=== PATIENT | male | born 1970 | race African-American/Black ===

== ENCOUNTER 2024-05-20 17:44 | Emergency (ER) | payer OTHER, SELFPAY ==
[2024-05-20 17:59] VITALS: BP 125/73; PULSE 81; RESP 18; TEMP 37.2; O2SAT 100; BMI 23.7
--- NOTE | 2024-05-20 18:22 | DI.CT.S_ITS ---
PROCEDURE: CT HEAD/BRAIN WO CON INDICATIONS: pain; heavy wooden beam fell on top of his head 3 weeks ago TECHNIQUE: Noncontrast 4.5 mm thick angled axial sections acquired from the foramen magnum to the vertex, with coronal and sagittal reformats. For radiation dose reduction, the following was used: automated exposure control, adjustment of mA and/or kV according to patient size. COMPARISON: None. FINDINGS: Image quality: Diagnostic. CSF spaces: Basal cisterns are patent. No extra-axial fluid collections. Ventricles are normal in size and shape. Brain: No midline shift. No intracranial masses or hemorrhage. Sierra-white matter interface is normal. Skull and face: Calvarium and visualized facial bones are intact, without suspicious lesions. Sinuses: Visualized sinuses and mastoids are clear. IMPRESSION: No acute intracranial pathology. Dictated by: Taiwo Vazquez M.D. on 05/20/2024 at 18:43 Approved by: Taiwo Vazquez M.D. on 05/20/2024 at 18:43
--- NOTE | 2024-05-20 18:22 | DI.CT.S_ITS ---
PROCEDURE: CT CERVICAL SPINE WO CON INDICATIONS: pain; heavy wooden beam fell on top of his head 3 weeks ago TECHNIQUE: Noncontrast 3 mm thick sections acquired from the skull base to the T4 level. Sagittal and coronal reformats were then constructed. For radiation dose reduction, the following was used: automated exposure control, adjustment of mA and/or kV according to patient size. COMPARISON: None. FINDINGS: Image quality: Excellent. Bones: No fractures or dislocations. Loss of disc height, degenerative endplate changes and bilateral uncovertebral hypertrophic changes are noted throughout cervical spine more notably at C5-6 and C6-7 levels. Visualized superior ribs are intact. Soft tissues: Prevertebral soft tissues are normal in thickness. No paravertebral hematomas. No apical pneumothoraces. IMPRESSION: 1. No displaced fracture or traumatic subluxation. 2. Multilevel spondylitic changes throughout cervical spine as above. Dictated by: Taiwo Vazquez M.D. on 05/20/2024 at 18:44 Approved by: Taiwo Vazquez M.D. on 05/20/2024 at 18:45
--- NOTE | 2024-05-20 18:32 | ED_ITS ---
<Statement entered by Beto Menezes, - 05/20/24 21:09> Dr. Menezes: I was immediately available in the department for consultation. I did not actually see the patient. HPI - Head Injury General Chief complaint: Head Injury Stated complaint: Head trauma x1 mo, NARAYAN, swelling, hearing issue Time Seen by Provider: 05/20/24 18:11 Source: patient Mode of arrival: Ambulatory History of Present Illness HPI Narrative: Mr. Franks Is a very pleasant 54-year-old male who denies any past medical history that presents to the emergency department for persistent headache, neck pain after a large heavy wooden beam fell directly on the top of his head on April 25. patient states large 4 x 8 or 4 x 10 wooden beam fell approximately 3 ft hitting him directly on the top of his head on April 25. He did not lose consciousness but felt slightly dazed immediately after the accident. He has had no nausea or vomiting since then but reports feeling slightly groggy, persistent headache/superior scalp pain, and some mild bilateral neck soreness. He also notes that when he wakes up in the morning he feels like his upper eyelids in the right side of his face is slightly swollen and it resolves as the day goes on. He continues to feel an abnormality on the right superior portion of his scalp. Also admits to sensation of fullness in his right ear. There was no bleeding or lacerations. No visual disturbance. No numbness tingling or weakness of any of the extremities. He denies a history of diabetes or high blood pressure. He is here with his son who contributes to the history. They live on [address]. Related Data Allergies Allergy/AdvReac Type Severity Reaction Status Date / Time No Known Drug Allergies Allergy Verified 05/20/24 17:59 Review of Systems Review of Systems ROS Unobtainable: All systems reviewed & are unremarkable except as noted in HPI and below Patient History Social History Smoking Status: Never smoker Smoking Status: Never smoker Exam Narrative Exam Narrative: GENERAL: 54 year old patient appears stated age. Well-developed patient, in no acute distress. HEAD: Atraumatic. Normocephalic. EYES: PERRL. BL Proptosis. Extraocular motions intact. No scleral icterus. No injection or drainage. ENT: Cerumen in right ear canal, TMs clear bilaterally with no hemotympanum. Nose without bleeding, purulent drainage. Throat without erythema, tonsillar hypertrophy or exudate. Airway patent. NECK: Trachea midline. Cervical ROM intact. No midline spinal tenderness. Subjective pain in bilateral cervical region with range of motion. CARDIOVASCULAR: Regular rate and rhythm. RESPIRATORY: Nonlabored respirations. Speaking in clear, full sentences. Clear to auscultation. Breath sounds equal bilaterally. No wheezes, rales, or rhonchi. EXTREMITIES: No edema or joint tenderness. BACK: No midline spinal tenderness. NEURO: AOx3. Clear speech. Moves all 4 extremities appropriately. No facial asymmetry. Bilateral upper and lower extremity strength intact. Ambulatory. SKIN: No rash or erythema of visible areas Initial Vital Signs Initial Vital Signs: Vital Signs Temperature 98.9 F 05/20/24 17:59 Pulse Rate 81 05/20/24 17:59 Respiratory Rate 18 05/20/24 17:59 Blood Pressure 125/73 05/20/24 17:59 Pulse Oximetry 100 05/20/24 17:59 Oxygen Delivery Method Room Air 05/20/24 17:59 Procedures Ear Wax Removal Right Ear: Results: Re-examined: cerumen removed completely TM Examination: TM(s) intact, normal appearance Ear Canal Exam: atraumatic Patient Tolerated Procedure: Well Complications: no problems Technique: ear canal curetted Course Orders Ordered: ED Orders 05/20/24 18:22 CT cervical spine wo con Stat CT head/brain wo con Stat Vital Signs Vital signs: Vital Signs - 8 hr 05/20/24 17:59 Temperature 98.9 F Pulse Rate 81 Respiratory Rate 18 Blood Pressure 125/73 Pulse Oximetry 100 Oxygen Delivery Method Room Air MDM - Head Injury MDM Narrative Medical decision making narrative: 54-year-old male who denies any past medical history that presents to the emergency department for persistent headache, neck pain after a large heavy wooden beam fell directly on the top of his head on April 25. Differential diagnosis includes but is not limited to concussion, closed head injury, skull fracture, intracranial hemorrhage, cerumen impaction, hyperglycemia, hypoglycemia, hyperthyroidism, etc. On exam patient is in no acute distress, nontoxic appearing, vital signs within normal limits. He has no focal neurologic deficits, pupils are equal round reactive to light, he does have tenderness to palpation of the right superior scalp. He is ambulatory without difficulty. No midline cervical tenderness. We will proceed with head and neck CT. He declines pain medication. Point of care glucose 98. CT cervical spine reveals no displaced fracture or traumatic subluxation. Multilevel spondylitic changes throughout cervical spine. head CT reveals no acute intracranial pathology. Suspect patient's symptoms are due to persistent concussion, he has not interested in any medications but we did discuss the importance of decreased mental stimulation, follow up with PCP, neurology for persistent symptoms. Also recommended patient follow up with his PCP regarding potential Graves disease given his proptosis on exam. Patient his son verbalized understanding of all information and are happy with this plan. He is stable for discharge home. Discharge Plan Departure Patient Disposition: Home Clinical Impression: Cervical spondylitis Concussion without loss of consciousness Qualifiers: Encounter type: initial encounter Qualified Code(s): S06.0X0A - Concussion without loss of consciousness, initial encounter Closed head injury Qualifiers: Encounter type: initial encounter Qualified Code(s): S09.90XA - Unspecified injury of head, initial encounter Instructions: DI for Concussion Activity Restrictions/Additional Instructions: Dear Mr. Mirzalean, Thank you for coming to the emergency department. Today you were evaluated for symptoms after head trauma. The CT scan of your head and neck revealed no bleeds or fractures. Today you were evaluated and diagnosed with a concussion which is type of closed head injury.Avoiding highly stimulating activities and even TV or computers may be helpful in minimizing your symptoms. Avoid activities that will put you at risk for another head injury for at least a week. You can take tylenol or motrin for headache. Return for worsening or persistent symptoms Please follow up with your primary care doctor within the next 2-3 days for ER follow-up. (If you do not have a PCP you can call [phone]. to schedule an appointment with an [facility] Primary Care Provider) IF YOU DEVELOP ANY NEW OR WORSENING SYMPTOMS, RETURN TO THE ER! Please read the attached instructions, they highlight more specific treatments and interventions for you at home. Thank you for letting me participate in your care, Missy Chang PA-C Referrals: Maximino Lopez PA-C [Primary Care Provider] - Stand Alone Forms: Patient Portal/API/Survey
[2024-05-20 19:30] VITALS: BP 133/81; PULSE 73; RESP 16; O2SAT 98
== END 2024-05-20 19:32 | disposition home or self-care (01) ==
PROVIDERS: Emergency Provider Physician Assistant; PCP Physician Assistant
DX: S06.0X0A Concussion without loss of consciousness, initial encounter (principal); M54.2 Cervicalgia; W22.8XXA Striking against or struck by other objects, initial encounter; M46.82 Other specified inflammatory spondylopathies, cervical region
CPT/HCPCS: 69209; 70450; 72125; 82962; 99282; 99284

== ENCOUNTER 2024-07-03 15:05 | Emergency (ER) | payer OTHER, SELFPAY ==
[2024-07-03 15:08] VITALS: BP 139/78; PULSE 89; RESP 18; TEMP 36.8; O2SAT 99; BMI 23.6
--- NOTE | 2024-07-03 15:33 | ED_ITS ---
HPI - Abdominal Pain <Missy Chang PA-C - Last Filed: 07/03/24 18:45> General Chief Complaint: Abdominal Pain Stated Complaint: kidney px, blood in urine Time Seen by Provider: 07/03/24 15:25 Source: patient Mode of arrival: Ambulatory History of Present Illness HPI narrative: Mr. Franks is a very pleasant 54-year-old male with a past medical history of cervical spondylitis, concussion who presents to the emergency department for ?kidney pain, blood in urine? x1 week. Patient states over the last week he has been having abdominal pain and spasms off and on, on Monday he went to a clinic on [address] and was told that he had blood in his urine. His pain started to focus in the right back/flank reason but is also now in the periumbilical region and he feels as though he has been more constipated than usual. He denies gross hematuria but does report his urine has been more yellow than usual. Today he started to feel somewhat feverish. Denies chest pain, shortness of breath, nausea, vomiting, cough, fevers, dysuria. Denies history of abdominal surgeries, he does not take any prescription medications but does take ashwaganda. He does not smoke. Related Data Previous Rx's Medication Instructions Recorded dicyclomine 10 mg capsule 10 mg PO TID 1 week #21 caps 07/05/24 Allergies Allergy/AdvReac Type Severity Reaction Status Date / Time No Known Drug Allergies Allergy Verified 05/20/24 17:59 Review of Systems <Missy Chang PA-C - Last Filed: 07/03/24 18:45> Review of Systems ROS Unobtainable: All systems reviewed & are unremarkable except as noted in HPI and below Patient History <Missy Chang PA-C - Last Filed: 07/03/24 18:45> Smoking Status: Never smoker Exam <Missy Chang PA-C - Last Filed: 07/03/24 18:45> Narrative Exam Narrative: GENERAL: 54 year old patient appears stated age. Well-developed patient, in no acute distress. HEAD: Atraumatic. Normocephalic. NECK: Trachea midline. Cervical ROM intact. CARDIOVASCULAR: Regular rate and rhythm. RESPIRATORY: ?Nonlabored respirations. ?Speaking in clear, full sentences. ?Clear to auscultation. Breath sounds equal bilaterally. No wheezes, rales, or rhonchi. ? GASTROINTESTINAL: Patient has periumbilical abdominal tenderness, nonfocal, nonspecific, there is active guarding which patient is able to relax no rebound or peritoneal signs. Bowel sounds present. EXTREMITIES: No edema or joint tenderness. Strong DP pulses BL. BACK: Right-sided subjective CVA tenderness. NEURO: AOx3. ?Clear speech. ?Moves all 4 extremities appropriately. SKIN: No rash or erythema of visible areas Initial Vital Signs Initial Vital Signs: Vital Signs Temperature 98.2 F 07/03/24 15:08 Pulse Rate 89 07/03/24 15:08 Respiratory Rate 18 07/03/24 15:08 Blood Pressure 139/78 07/03/24 15:08 Pulse Oximetry 99 07/03/24 15:08 Oxygen Delivery Method Room Air 07/03/24 15:08 <Alicia Stephens DO - Last Filed: 07/05/24 10:28> Initial Vital Signs Initial Vital Signs: Vital Signs Temperature 98.2 F 07/03/24 15:08 Pulse Rate 89 07/03/24 15:08 Respiratory Rate 18 07/03/24 15:08 Blood Pressure 139/78 07/03/24 15:08 Pulse Oximetry 99 07/03/24 15:08 Oxygen Delivery Method Room Air 07/03/24 15:08 Course <Missy Chang PA-C - Last Filed: 07/03/24 18:45> Orders Ordered: Discontinued Medications Ketorolac Tromethamine (Ketorolac 30 Mg/Ml Vial) 15 mg IV NOW ONE Stop: 07/03/24 15:49 Vital Signs Vital signs: Vital Signs - 8 hr 07/03/24 15:08 07/03/24 18:05 Temperature 98.2 F Pulse Rate 89 74 Respiratory Rate 18 20 Blood Pressure 139/78 124/80 Pulse Oximetry 99 99 Oxygen Delivery Method Room Air Room Air <DO Yanelis Aguilar Last Filed: 07/05/24 10:28> Orders Ordered: Discontinued Medications Ketorolac Tromethamine (Ketorolac 30 Mg/Ml Vial) 15 mg IV NOW ONE Stop: 07/03/24 15:49 Vital Signs Vital signs: Vital Signs - 8 hr 07/03/24 15:08 07/03/24 18:05 Temperature 98.2 F Pulse Rate 89 74 Respiratory Rate 18 20 Blood Pressure 139/78 124/80 Pulse Oximetry 99 99 Oxygen Delivery Method Room Air Room Air MDM - Abdominal Pain <Missy Chang PA-C - Last Filed: 07/03/24 18:45> Medical Records Attestation: I reviewed the patient's medical records. Medical records narrative: ED visit 05/20/2024 Lab Data 07/03/24 15:50 07/03/24 15:50 Labs: Lab Results 07/03/24 07/03/24 Range/Units 15:15 15:50 WBC 4.8 (4.5-11.0) X10^3/uL RBC 5.29 (4.5-5.9) X10^6/uL Hgb 15.8 (13.5-17.5) g/dL Hct 46.5 (41-53) % MCV 87.9 (80-100) fL MCH 29.9 (26-34) PG MCHC 34.0 (30-36) % RDW 13.7 (11.6-14.8) % Plt Count 228 (150-400) X10^3/uL Neut % (Auto) 56.9 (50-75) % Lymph % (Auto) 34.3 (25-40) % [place] % (Auto) 7.6 (3-14) % Eos % (Auto) 0.8 L (2-4) % Baso % (Auto) 0.4 (0-2) % Neut # (Auto) 2700 (6240-4711) /uL Lymph # (Auto) 1600 (7160-9326) /uL [place] # (Auto) 400 (0-900) /uL Eos # (Auto) 0 (0-450) /uL Baso # (Auto) 0 (0-100) /uL Sodium 139 (137-145) mmol/L Potassium 4.7 (3.4-5.1) mmol/L Chloride 99 (98-107) mmol/L Carbon Dioxide 33 H (22-32) mmol/L BUN 17 (9-20) mg/dL Creatinine 1.01 (0.66-1.25) mg/dL Estimated GFR > 60 (>60) mL/min BUN/Creatinine Ratio 16.8 (6-22) Glucose 103 H (70-99) mg/dL Lactate 1.6 (0.7-2.1) mmol/L Calcium 10.3 H (8.4-10.2) mg/dL Total Bilirubin 0.6 (0.2-1.3) mg/dL AST 36 (17-59) IU/L ALT 37 (<50) IU/L Alkaline Phosphatase 93 (38-126) U/L Total Protein 8.0 (6.3-8.2) g/dL Albumin 4.8 (3.5-5.0) g/dL Globulin 3.2 (1.7-4.1) g/dL Albumin/Globulin Ratio 1.5 (1.0-2.8) Lipase 307 H (23-300) U/L Urine RBC 0-1/hpf (0-5/HPF) Urine WBC None seen (0-5/HPF) Ur Squamous Epith Cells 0-1 /hpf (0-5/HPF) Urine Bacteria None seen (None) Ur Culture Indicated? Cult not indicated Vol Urine Centrifuged 10ml (spun) Point of care testing: Urine Dip Bedside Urine Glucose Negative Bedside Urine Bilirubin - Negative Bedside Urine Ketone - Negative Urine Specific [place] 1.015 Bedside Urine Occult Blood + Bedside Urine pH 6.0 Bedside Urine Protein - Negative Bedside Urine Urobilinogen - Negative Bedside Urine Nitrite - Negative Bedside Urine Leukocytes - Negative Esterase Imaging Data CT scan - abdomen/pelvis: Radiologist's Impression: PROCEDURE: CT ABDOMEN PELVIS W CON INDICATIONS: R flank pain; periumbilical pain; constipation; hematuria TECHNIQUE: After the administration of intravenous contrast, axial sections acquired from the lung bases to the pubic symphysis. Coronal and sagittal reformats were performed. For radiation dose reduction, the following was used: automated exposure control, adjustment of mA and/or kV according to patient size. COMPARISON: None. FINDINGS: Image quality: Diagnostic. Lower Chest: No significant findings. ABDOMEN: Liver: There is a 1 cm indeterminate hypoenhancing area in the right hepatic lobe posteriorly. Gallbladder: No radiopaque gallstones or wall thickening. Biliary ducts: No biliary dilation. Pancreas: No ductal dilation. Spleen: Size is within normal limits. Adrenal Glands: No adrenal nodules. Kidneys and Ureters: No hydronephrosis. No solid mass. No complex renal cystic lesion which requires follow up. Stomach and Bowel: Normal colonic caliber, without significant wall thickening. The appendix is normal. Peritoneum: No abnormal intraperitoneal fluid. No free air. Ventral Wall: No significant ventral hernia. Abdominal Nodes: No retroperitoneal or mesenteric adenopathy by size criteria. Vessels: Aorta and inferior vena cava are normal in size. PELVIS: Pelvic Organs: Unremarkable. Bladder: No bladder wall thickening, accounting for underdistention. Pelvic Nodes: No enlarged lymph nodes. Miscellaneous: No inguinal hernias are seen. Bones: No aggressive osseous abnormality. IMPRESSION: 1. No acute intra-abdominal abnormality seen. 2. Subcentimeter hypodense lesion in the right hepatic lobe, statistically likely benign. If there is a clinical possibility of malignancy, this could be further assessed with follow-up MRI in 3 months. Dictated by: Cody Dunham M.D. on 07/03/2024 at 16:52 Approved by: Cody Dunham M.D. on 07/03/2024 at 16:57 [facility] Narrative Medical decision making narrative: 54-year-old male with a past medical history of cervical spondylitis, concussion who presents to the emergency department for ?kidney pain, blood in urine? x1 week. Differential diagnosis includes but is not limited to right nephrolithiasis, pyelonephritis, hydronephrosis, UTI, muscle strain, diverticulitis, cholecystitis, appendicitis, electrolyte abnormality, etc. On exam patient is in no acute distress, nontoxic-appearing, all vital signs within normal limits. Does have some nonfocal periumbilical abdominal tenderness, right flank tenderness. Point of care UA reveals no ketones, no signs of infection, there is occult blood. We will obtain CBC, CMP, lipase, CT abdomen pelvis with IV contrast given patient's tenderness, reported fevers. Toradol ordered however patient is very reluctant to use any medication for his pain. Labs revealed WBC count 4.8, hemoglobin 15.8, hematocrit 46.5. Normal sodium 139, potassium 4.7, carbon dioxide mild elevation 33. Glucose 103, normal renal function, calcium 10.3. Normal LFTs. Lipase slightly elevated 307, not consistent with pancreatitis. Urine reveals 0-1 RBC, 0-1 squamous epithelial cells. No signs of infection. Imaging reveals no acute intra-abdominal abnormality, subcentimeter hyperdense lesion in the right hepatic lobe. All lab work and imaging results were printed with the patient, recommended further follow up with his PCP for liver lesion. At this time we discussed that right flank pain could have been because a passed kidney stone however more likely musculoskeletal, recommended Toradol, Tylenol, Lidoderm, patient declines any and all pain medications at this time. He is agreeable to follow up with his PCP, we discussed some supportive care measures he could use for home and most importantly we discussed strict ED return precautions as we do not have a definitive diagnosis for his symptoms today. His abdominal exam is benign at this time. He verbalized understanding of all information is agreeable with the plan. He is stable for discharge home. <Alicia Stephens, - Last Filed: 07/05/24 10:28> Lab Data Labs: Lab Results 07/03/24 07/03/24 Range/Units 15:15 15:50 WBC 4.8 (4.5-11.0) X10^3/uL RBC 5.29 (4.5-5.9) X10^6/uL Hgb 15.8 (13.5-17.5) g/dL Hct 46.5 (41-53) % MCV 87.9 (80-100) fL MCH 29.9 (26-34) PG MCHC 34.0 (30-36) % RDW 13.7 (11.6-14.8) % Plt Count 228 (150-400) X10^3/uL Neut % (Auto) 56.9 (50-75) % Lymph % (Auto) 34.3 (25-40) % [place] % (Auto) 7.6 (3-14) % Eos % (Auto) 0.8 L (2-4) % Baso % (Auto) 0.4 (0-2) % Neut # (Auto) 2700 (0977-3635) /uL Lymph # (Auto) 1600 (5853-8077) /uL [place] # (Auto) 400 (0-900) /uL Eos # (Auto) 0 (0-450) /uL Baso # (Auto) 0 (0-100) /uL Sodium 139 (137-145) mmol/L Potassium 4.7 (3.4-5.1) mmol/L Chloride 99 (98-107) mmol/L Carbon Dioxide 33 H (22-32) mmol/L BUN 17 (9-20) mg/dL Creatinine 1.01 (0.66-1.25) mg/dL Estimated GFR > 60 (>60) mL/min BUN/Creatinine Ratio 16.8 (6-22) Glucose 103 H (70-99) mg/dL Lactate 1.6 (0.7-2.1) mmol/L Calcium 10.3 H (8.4-10.2) mg/dL Total Bilirubin 0.6 (0.2-1.3) mg/dL AST 36 (17-59) IU/L ALT 37 (<50) IU/L Alkaline Phosphatase 93 (38-126) U/L Total Protein 8.0 (6.3-8.2) g/dL Albumin 4.8 (3.5-5.0) g/dL Globulin 3.2 (1.7-4.1) g/dL Albumin/Globulin Ratio 1.5 (1.0-2.8) Lipase 307 H (23-300) U/L Urine RBC 0-1/hpf (0-5/HPF) Urine WBC None seen (0-5/HPF) Ur Squamous Epith Cells 0-1 /hpf (0-5/HPF) Urine Bacteria None seen (None) Ur Culture Indicated? Cult not indicated Vol Urine Centrifuged 10ml (spun) Point of care testing: Urine Dip Bedside Urine Glucose Negative Bedside Urine Bilirubin - Negative Bedside Urine Ketone - Negative Urine Specific [place] 1.015 Bedside Urine Occult Blood + Bedside Urine pH 6.0 Bedside Urine Protein - Negative Bedside Urine Urobilinogen - Negative Bedside Urine Nitrite - Negative Bedside Urine Leukocytes - Negative Esterase Discharge Plan Departure Patient Disposition: Home Clinical Impression: Acute right flank pain, Abdominal pain, acute, periumbilical, Liver lesion, right lobe Instructions: DI for Abdominal Pain-Adult Activity Restrictions/Additional Instructions: Dear Mr. Mirzalean, Thank you for coming to the emergency department.Today, we completed a work up for right flank pain and abdominal pain. Sometimes, we do not always find the cause for your symptoms in one ER visit. The findings on your exam today and on your blood work and/or imaging is reassuring. At this time, it is not 100% certain what is causing your symptoms, but we feel you can be discharged from the emergency department. It is possible this may worsen or you may get better. Please, if you get worse or your symptoms change, return to the emergency department. Otherwise, please follow up with your primary care doctor in 1-2 days or any of the specialists we have provided or recommended. I do recommend ibuprofen and acetaminophen however if you do not want to take these medications, please rest, hydrate, do gentle stretching, and use heat therapy on your back to help with pain. Please follow up with your primary care doctor within the next 2-3 days for ER follow-up. (If you do not have a PCP you can call [phone]. ?to schedule an appointment with an [facility] Primary Care Provider) IF YOU DEVELOP ANY NEW OR WORSENING SYMPTOMS, RETURN TO THE ER! Please read the attached instructions, they highlight more specific treatments and interventions for you at home. Thank you for letting me participate in your care, Missy Chang PA-C Prescriptions: No Action dicyclomine 10 mg capsule 10 mg PO TID 7 Days Qty: 21 0RF Referrals: Maximino Lopez PA-C [Primary Care Provider] - Stand Alone Forms: Patient Portal/API/Survey ED Sign-out <Alicia Stephens DO - Last Filed: 07/05/24 10:28> Cosign ED Attending Agustinaature Attestation: I was immediately available in the department for consultation.
[2024-07-03 15:49] LABS: Bacteria Urine None Seen; Culture Indicated Urine Cult Not Indicated; RBC Urine 0-1/HPF (0-5/HPF); Squamous Epithelial Cell Urine 0-1 /HPF (0-5/HPF); Urine Volume 10mL (spun); WBC Urine None Seen (0-5/HPF)
--- NOTE | 2024-07-03 15:49 | DI.CT.S_ITS ---
PROCEDURE: CT ABDOMEN PELVIS W CON INDICATIONS: R flank pain; periumbilical pain; constipation; hematuria TECHNIQUE: After the administration of intravenous contrast, axial sections acquired from the lung bases to the pubic symphysis. Coronal and sagittal reformats were performed. For radiation dose reduction, the following was used: automated exposure control, adjustment of mA and/or kV according to patient size. COMPARISON: None. FINDINGS: Image quality: Diagnostic. Lower Chest: No significant findings. ABDOMEN: Liver: There is a 1 cm indeterminate hypoenhancing area in the right hepatic lobe posteriorly. Gallbladder: No radiopaque gallstones or wall thickening. Biliary ducts: No biliary dilation. Pancreas: No ductal dilation. Spleen: Size is within normal limits. Adrenal Glands: No adrenal nodules. Kidneys and Ureters: No hydronephrosis. No solid mass. No complex renal cystic lesion which requires follow up. Stomach and Bowel: Normal colonic caliber, without significant wall thickening. The appendix is normal. Peritoneum: No abnormal intraperitoneal fluid. No free air. Ventral Wall: No significant ventral hernia. Abdominal Nodes: No retroperitoneal or mesenteric adenopathy by size criteria. Vessels: Aorta and inferior vena cava are normal in size. PELVIS: Pelvic Organs: Unremarkable. Bladder: No bladder wall thickening, accounting for underdistention. Pelvic Nodes: No enlarged lymph nodes. Miscellaneous: No inguinal hernias are seen. Bones: No aggressive osseous abnormality. IMPRESSION: 1. No acute intra-abdominal abnormality seen. 2. Subcentimeter hypodense lesion in the right hepatic lobe, statistically likely benign. If there is a clinical possibility of malignancy, this could be further assessed with follow-up MRI in 3 months. Dictated by: Cody Dunham M.D. on 07/03/2024 at 16:52 Approved by: Cody Dunham M.D. on 07/03/2024 at 16:57
[2024-07-03 16:19] LABS: Add Manual Diff / Slide Review NO; Basophils Absolute Auto 0 /uL (0-100); Basophils Percent Auto 0.4 % (0-2); Eosinophils Absolute Auto 0 /uL (0-450); Eosinophils Percent Auto 0.8 % (2-4); Hematocrit 46.5 % (41-53); Hemoglobin 15.8 g/dL (13.5-17.5); Lymphocytes Absolute Auto 1600 /uL (1100-4500); Lymphocytes Percent Auto 34.3 % (25-40); Mean Corpuscular Hemoglobin 29.9 PG (26-34); Mean Corpuscular Volume 87.9 fL (80-100); Monocytes Absolute Auto 400 /uL (0-900); Monocytes Percent Auto 7.6 % (3-14); Neutrophils Absolute Auto 2700 /uL (1500-7000); Neutrophils Percent Auto 56.9 % (50-75); Platelet Count 228 X10^3/uL (150-400); Red Blood Cell Count 5.29 X10^6/uL (4.5-5.9); Red Cell Distribution Width 13.7 % (11.6-14.8); White Blood Cell Count 4.8 X10^3/uL (4.5-11.0)
[2024-07-03 16:25] LABS: Alanine Aminotransferase 37 IU/L (<50); Albumin 4.8 g/dL (3.5-5.0); Albumin Globulin Ratio 1.5 (1.0-2.8); Alkaline Phosphatase 93 U/L (38-126); Aspartate Aminotransferase 36 IU/L (17-59); BUN Creatinine Ratio 16.8 (6-22); Bilirubin Total 0.6 mg/dL (0.2-1.3); Blood Urea Nitrogen 17 mg/dL (9-20); Calcium 10.3 mg/dL (8.4-10.2); Carbon Dioxide 33 mmol/L (22-32); Chloride 99 mmol/L (98-107); Estimated Glomerular Filt Rate > 60 mL/min (>60); Globulin 3.2 g/dL (1.7-4.1); Glucose 103 mg/dL (70-99); HEMOLYSIS 24 (0-50); Lipase 307 U/L (23-300); Potassium 4.7 mmol/L (3.4-5.1); Sodium 139 mmol/L (137-145)
[2024-07-03 16:33] LABS: Lactate (Lactic Acid) 1.6 mmol/L (0.7-2.1)
[2024-07-03 18:05] VITALS: BP 124/80; PULSE 74; RESP 20; O2SAT 99
== END 2024-07-03 19:04 | disposition home or self-care (01) ==
PROVIDERS: Emergency Provider Physician Assistant; PCP Physician Assistant
DX: R10.33 Periumbilical pain (principal); R10.9 Unspecified abdominal pain; K76.9 Liver disease, unspecified
CPT/HCPCS: 74177; 80053; 81003; 81015; 83605; 83690; 85025; 99282; 99284; Q9967

== ENCOUNTER 2024-07-04 20:45 | Emergency (ER) | payer OTHER, SELFPAY ==
[2024-07-04 20:51] VITALS: BP 152/81; PULSE 84; RESP 18; TEMP 37.1; O2SAT 99; BMI 24.3
[2024-07-04 23:14] LABS: Add Manual Diff / Slide Review NO; Basophils Absolute Auto 0 /uL (0-100); Basophils Percent Auto 0.5 % (0-2); Eosinophils Absolute Auto 0 /uL (0-450); Eosinophils Percent Auto 0.6 % (2-4); Hematocrit 46.5 % (41-53); Hemoglobin 15.9 g/dL (13.5-17.5); Lymphocytes Absolute Auto 2300 /uL (1100-4500); Lymphocytes Percent Auto 36.7 % (25-40); Mean Corpuscular HGB Conc 34.2 % (30-36); Mean Corpuscular Hemoglobin 30.1 PG (26-34); Monocytes Absolute Auto 400 /uL (0-900); Monocytes Percent Auto 6.9 % (3-14); Neutrophils Absolute Auto 3500 /uL (1500-7000); Neutrophils Percent Auto 55.3 % (50-75); Platelet Count 228 X10^3/uL (150-400); Red Blood Cell Count 5.29 X10^6/uL (4.5-5.9); Red Cell Distribution Width 13.9 % (11.6-14.8); White Blood Cell Count 6.2 X10^3/uL (4.5-11.0)
[2024-07-04 23:55] LABS: Alanine Aminotransferase 34 IU/L (<50); Albumin 4.9 g/dL (3.5-5.0); Albumin Globulin Ratio 1.4 (1.0-2.8); Alkaline Phosphatase 116 U/L (38-126); Aspartate Aminotransferase 37 IU/L (17-59); BUN Creatinine Ratio 18.2 (6-22); Bilirubin Total 0.5 mg/dL (0.2-1.3); Blood Urea Nitrogen 18 mg/dL (9-20); Calcium 10.1 mg/dL (8.4-10.2); Carbon Dioxide 30 mmol/L (22-32); Chloride 101 mmol/L (98-107); Estimated Glomerular Filt Rate > 60 mL/min (>60); Globulin 3.4 g/dL (1.7-4.1); Glucose 94 mg/dL (70-99); HEMOLYSIS < 15 (0-50); Lipase 330 U/L (23-300); Magnesium 1.9 mg/dL (1.6-2.3); Potassium 4.3 mmol/L (3.4-5.1); Sodium 138 mmol/L (137-145); Total Protein 8.3 g/dL (6.3-8.2)
[2024-07-05 01:13] VITALS: O2SAT 100
--- NOTE | 2024-07-05 01:13 | ED_ITS ---
HPI - Abdominal Pain General Chief Complaint: Abdominal Pain Stated Complaint: Abdominal Pain, Nausea Time Seen by Provider: 07/05/24 01:12 Source: patient Mode of arrival: Ambulatory History of Present Illness HPI narrative: 54-year-old male without any significant past medical history presenting from home for evaluation of persistent abdominal pain, he was seen here yesterday for the same, he states that the pain is not any better or worse, patient states that he presents because symptoms persist, he denies any other symptoms such as headache visual disturbances chest pain shortness of breath nausea vomiting or any other GI/ symptoms. He states that he feels like he needs to use the restroom but only passes gas. Related Data Previous Rx's Medication Instructions Recorded dicyclomine 10 mg capsule 10 mg PO TID 1 week #21 caps 07/05/24 Allergies Allergy/AdvReac Type Severity Reaction Status Date / Time No Known Drug Allergies Allergy Verified 05/20/24 17:59 Review of Systems Review of Systems Narrative: General: Denies fever, chills, weight loss HEENT: Denies headache, eye drainage, eye irritation, head trauma, sore throat, voice change Cardiovascular: Denies any chest pain, palpitations, tachycardia Respiratory: Denies any shortness of breath, cough, wheeze, stridor GI/: Positive abdominal pain, denies nausea, vomiting, diarrhea, bright red blood per rectum, melanotic stools, urinary frequency, urinary retention, dysuria, hematuria MSK: Denies any joint pain, muscle pains, swelling Skin: Denies any rashes, lesions, discoloration Neuro: Denies any headache, lightheadedness, dizziness, fainting, weakness Psych: Denies SI/HI Exam Narrative Exam Narrative: General: Cooperative, well-developed, not in acute distress HEENT: Normocephalic, atraumatic, PERRLA, normal sclera, eyelids normal Neck: Active full range of motion, atraumatic Chest: Normal to inspection, negative crepitus, no overlying erythema ecchymosis Respiratory: Normal respiratory effort, not in acute respiratory distress, clear to auscultation bilaterally negative cough, wheeze, tachypnea, rhonchi, rales Cardiology: Regular rate rhythm negative gallop, murmur, rubs GI/: No tenderness to palpation, soft, non rigid, normal to inspection, exam deferred MSK: Full active range of motion in all 4 extremities, atraumatic, no tenderness to palpation of any bony prominences Skin: No rashes or lesions noted Neuro: Alert awake oriented x3, moves all 4 extremities spontaneously, cranial nerves intact, able to answer all questions appropriately follows commands appropriately Psych: Cooperative, negative suicidal or homicidal ideations Initial Vital Signs Initial Vital Signs: Vital Signs Temperature 98.7 F 07/04/24 20:51 Pulse Rate 84 07/04/24 20:51 Respiratory Rate 18 07/04/24 20:51 Blood Pressure 152/81 H 07/04/24 20:51 Pulse Oximetry 99 07/04/24 20:51 Oxygen Delivery Method Room Air 07/04/24 20:51 Course Orders Ordered: ED Orders 07/04/24 22:59 Complete Blood Count AUTO DIFF Stat Comprehensive Metabolic Panel Stat Lipase Stat MAG [Magnesium] Stat Discontinued Medications Sodium Chloride (Normal Saline 0.9%) 1,000 mls @ 1,000 mls/hr IV BOLUS ONE Stop: 07/04/24 23:42 Morphine Sulfate (Morphine 4 Mg/Ml Inj) 4 mg IV NOW ONE Stop: 07/04/24 22:44 Ondansetron HCl (Ondansetron 4 Mg/2 Ml Inj) 4 mg IV NOW ONE Stop: 07/04/24 22:44 Vital Signs Vital signs: Vital Signs - 8 hr 07/04/24 20:51 07/05/24 01:13 07/05/24 01:14 Temperature 98.7 F Pulse Rate 84 78 Respiratory Rate 18 Blood Pressure 152/81 H Pulse Oximetry 99 100 100 Oxygen Delivery Method Room Air 07/05/24 01:14 Temperature Pulse Rate Respiratory Rate Blood Pressure 137/73 Pulse Oximetry Oxygen Delivery Method MDM - Abdominal Pain Differential Diagnosis Differential diagnosis: Likely abdominal pain, constipation and other (Pancreatitis, electrolyte abnormality) Lab Data 07/04/24 22:59 07/04/24 22:59 Labs: Lab Results 07/04/24 Range/Units 22:59 WBC 6.2 (4.5-11.0) X10^3/uL RBC 5.29 (4.5-5.9) X10^6/uL Hgb 15.9 (13.5-17.5) g/dL Hct 46.5 (41-53) % MCV 88.0 (80-100) fL MCH 30.1 (26-34) PG MCHC 34.2 (30-36) % RDW 13.9 (11.6-14.8) % Plt Count 228 (150-400) X10^3/uL Neut % (Auto) 55.3 (50-75) % Lymph % (Auto) 36.7 (25-40) % [place] % (Auto) 6.9 (3-14) % Eos % (Auto) 0.6 L (2-4) % Baso % (Auto) 0.5 (0-2) % Neut # (Auto) 3500 (1614-6994) /uL Lymph # (Auto) 2300 (3359-6234) /uL [place] # (Auto) 400 (0-900) /uL Eos # (Auto) 0 (0-450) /uL Baso # (Auto) 0 (0-100) /uL Sodium 138 (137-145) mmol/L Potassium 4.3 (3.4-5.1) mmol/L Chloride 101 (98-107) mmol/L Carbon Dioxide 30 (22-32) mmol/L BUN 18 (9-20) mg/dL Creatinine 0.99 (0.66-1.25) mg/dL Estimated GFR > 60 (>60) mL/min BUN/Creatinine Ratio 18.2 (6-22) Glucose 94 (70-99) mg/dL Calcium 10.1 (8.4-10.2) mg/dL Magnesium 1.9 (1.6-2.3) mg/dL Total Bilirubin 0.5 (0.2-1.3) mg/dL AST 37 (17-59) IU/L ALT 34 (<50) IU/L Alkaline Phosphatase 116 (38-126) U/L Total Protein 8.3 H (6.3-8.2) g/dL Albumin 4.9 (3.5-5.0) g/dL Globulin 3.4 (1.7-4.1) g/dL Albumin/Globulin Ratio 1.4 (1.0-2.8) Lipase 330 H (23-300) U/L MDM Narrative Medical decision making narrative: 54-year-old male without any significant past medical history presenting for persistent abdominal pain, as well as tenesmus, states that he was seen here yesterday for the same, no new symptoms, describes it as cramping, denies any other symptoms, patient had repeat lab work here no leukocytosis Chem panel unremarkable slight increase in his lipase at 330 but on palpation no pain, CT scan that was performed yesterday 07/04/2024 without any signs of pancreatitis, patient is able tolerate p.o. liquids and solids, therefore no additional imaging required, I had a lengthy conversation with the patient regards to administration of medication, he states that he does not like taking a lot of medication, I informed him that we can trial a medication called James to help with his symptoms, he states that he is willing to try this but wants to do research at home, he was given strict return precautions he verbalized understanding of this and agrees to being discharged home with outpatient follow up, informed him to follow up with the primary care and GI in outpatient setting Discharge Plan Departure Patient Disposition: Home Clinical Impression: Abdominal pain Instructions: DI for Abdominal Pain-Adult Activity Restrictions/Additional Instructions: Please follow up with your primary care doctor and GI in outpatient setting Please read the discharge instructions sheet carefully and bring all papers to all doctor follow-up visits, as it may contain information that your doctor may want to see. Disease processes change and evolve, if your symptoms worsen or if you develop any new symptoms that are concerning to you please return for evaluation. Your evaluation today does not show any evidence of any life- threatening/serious illnesses requiring admission to the hospital or surgery. Please follow-up with your doctor for re-evaluation in approximately 1 day. Seek immediate medical attention for any worrisome symptoms. *If you do not have a primary care provider please contact the [facility] Resource line at [phone]. They will ask some questions about your medical history and help get you set up with a doctor in the community. Prescriptions: New dicyclomine 10 mg capsule 10 mg PO TID 7 Days Qty: 21 0RF Referrals: Maximino Lopez PA-C [Primary Care Provider] - Michele Dorman MD [Non-Staff] - Stand Alone Forms: Patient Portal/API/Survey
[2024-07-05 01:14] VITALS: BP 137/73; PULSE 78; O2SAT 100
== END 2024-07-05 02:10 | disposition home or self-care (01) ==
PROVIDERS: Emergency Provider Student in an Organized Health Care Education/Training Program; PCP Physician Assistant
DX: R10.9 Unspecified abdominal pain (principal)
CPT/HCPCS: 36415; 80053; 83690; 83735; 85025; 99283

== ENCOUNTER → 2024-08-11 12:37 | Outpatient (CLI) | payer OTHER, SELFPAY ==
--- NOTE | 2024-08-11 12:40 | DI.MRI.S_ITS ---
PROCEDURE: MR ABDOMEN LIVER PROTOCOL INDICATIONS: LIVER TECHNIQUE: Coronal HASTE, axial 2D FLASH in- and [id number]; axial breath-hold T2 FSE. Dynamic axial VIBE during the administration of contrast; post-contrast coronal VIBE or 2D FLASH with fat saturation from the hepatic dome to the iliac crests. Optional diffusion weighted imaging and ADC may be performed. COMPARISON: [facility], CT, CT ABDOMEN PELVIS W CON, 07/03/2024, 16:37. FINDINGS: Image quality: Diagnostic Lower chest: Lung bases appear unremarkable Liver: Posterior right lobe liver lesion (19/16) measures 0.9 cm and has high T2 signal with typical enhancement characteristics for hemangioma on series 16. This is benign. Many other smaller liver lesions are present, probably cysts or additional hemangiomas, difficult to characterize however due to their small size. Gallbladder and biliary system: Unremarkable, nondilated Pancreas: No ductal dilation Spleen: Nonenlarged Adrenals: No discrete nodules Kidneys: No hydronephrosis. No solid renal mass. In the right lateral kidney, there is a 1.6 cm lesion with a thickened lateral wall and internal enhancing septation (7/48). Vessels and lymph nodes: No enlarged lymph nodes by size criteria. No abdominal aortic aneurysm. The main portal vein is patent. Bowel and peritoneum: No bowel obstruction. No drainable abscess or ascites Body wall: Unremarkable Bones: No aggressive appearing osseous abnormality. IMPRESSION: The segment [address] liver lesion seen on CT corresponds to a benign hemangioma. Other smaller liver lesions are probably either cysts or additional small hemangiomas. Incidentally noted right lateral renal lesion measuring 1.6 cm (7/48), with slightly thickened enhancing lateral wall and enhancing internal septation. A 3 to 6- month follow-up MRI is recommended to insure this is stable. Differential includes a complicated cyst or a small solid cystic RCC. Dictated by: Olaf Mosqueda M.D. on 08/12/2024 at 8:14 Approved by: Olaf Mosqueda M.D. on 08/12/2024 at 8:26
== END ==
LOC: MRI 12:39
PROVIDERS: PCP Physician Assistant; Referring Provider Physician Assistant; Visit Provider Physician Assistant
DX: K76.9 Liver disease, unspecified (principal); N28.9 Disorder of kidney and ureter, unspecified
CPT/HCPCS: 74183; A9579